=== PATIENT | male | born 1935 | race Caucasian/White ===

== ENCOUNTER 2018-05-25 10:19 | Observation (INO) ==
[2018-05-25] MEDS ORDERED: Sod Chloride 0.9% Inj 1,000 ML IV.SIG ONE ×2 (11:15→13:50)
--- NOTE | 2018-05-25 11:21 | ED ---
HPI General Chief complaint: Dizziness Stated complaint: Dizziness Time Seen by Provider: 05/25/18 11:06 Source: patient, family, RN notes reviewed and old records reviewed Mode of arrival: ambulatory History of Present Illness HPI narrative: 83yM presenting with dizziness. The patient states that he woke up this morning around 7 AM with severe "dizziness like the room is spinning counterclockwise around me", intermittent, exacerbated by any head movement, associated with nausea. He has a history of A fib on coumadin and a traumatic SDH in 2012; he denies any recent head injuries, fever or chills, confusion, extremity numbness/ tingling/ weakness. Family history non-contributory. Related Data Home Medications Medication Instructions Recorded Confirmed atorvastatin 20 mg PO DAILY 05/25/18 05/25/18 cholecalciferol (vitamin D3) 2,000 unit PO DAILY 05/25/18 05/25/18 [Vitamin D3] donepezil 10 mg PO HS 05/25/18 05/25/18 glimepiride 2 mg PO QAM 05/25/18 05/25/18 sitagliptin [Januvia] 100 mg PO DAILY 05/25/18 05/25/18 tamsulosin 0.4 mg PO DAILY 05/25/18 05/25/18 warfarin 3 mg PO Q OTHER DAY 05/25/18 05/25/18 warfarin 3 mg PO Q OTHER DAY 05/25/18 05/25/18 Allergies Allergy/AdvReac Type Severity Reaction Status Date / Time bee venom protein (honey bee) Allergy Severe Confusion Verified 05/25/18 11:02 penicillin G Allergy Intermediate Hives Verified 05/25/18 11:02 Review of Systems ROS: all other systems reviewed are negative Constitutional Denies fever(s) Eyes Reports requires corrective lenses ENT Denies nasal congestion Cardiovascular Denies chest pain Respiratory Denies cough Gastrointestinal Denies nausea Genitourinary Denies dysuria and Reports urinary frequency Musculoskeletal Denies back pain Neurologic Denies confusion and Reports dizziness Psychiatric Denies confusion PMFSH History History Provided By: Patient Medical History Medical History A-fib (Acute) Diabetes (Acute) H/O traumatic subdural hematoma (Acute) Surgical History Surgical History History of stevo hole surgery (Acute) Social History Social History Substance History: No History of Abuse Smoking Status: Former smoker How Often Do You Have a Drink Containing Alcohol: 2 to 3 times a week Recent Travel in [facility] within the Last 8 Weeks: No Recent Out of Country Travel within the Last 8 Weeks: No Exam Const Other: Appears uncomfortable, leaning forward on bed, appears unsteady HENRI Head: normocephalic and atraumatic Face and sinus: normal facial exam Eyes General: appearance normal, both eyes and all related structures Other: Pupils 3 mm and reactive bilaterally Subtle right-sided horizontal nystagmus noted during extraocular testing Chest Chest: normal inspection of the chest Resp Effort & Inspection: normal respiratory effort Auscultation: no rhonchi and no wheezes Cardio Rate: regular rate Rhythm: abnormal rhythm GI Inspection: non-distended Palpation: soft and nontender Skin General: no rashes or lesions noted Neuro General: alert, awake and oriented x3 Other: Ambulates with unsteady gait, (+) truncal ataxia while sitting No facial droop or slurred speech, no aphasia Motor strength 5/5 and sensation intact to all extremities No pronator drift Psych Affect: normal affect Course Initial Documented Vital Signs Temperature 97.2 F L 05/25/18 10:43 Pulse Rate 67 05/25/18 10:43 Respiratory Rate 16 05/25/18 10:43 Blood Pressure 163/83 H 05/25/18 10:43 Pulse Oximetry 97 05/25/18 10:43 Last Documented Vital Signs Temperature 97.2 F L 05/25/18 10:43 Pulse Rate 57 L 05/25/18 13:02 Respiratory Rate 19 05/25/18 13:02 Blood Pressure 195/84 H 05/25/18 13:02 Pulse Oximetry 97 05/25/18 13:02 NIH Stroke Scale NIHSS Time Completed NIHSS Time Completed: 11:15 NIH Stroke Scale Level of Consciousness: 0-Alert Orientation Questions: 0-Answers both correct Responds to Commands: 0-Both tasks correct Gaze Eye Movement: 0-Horizontal movement WNL Visual Ajra: 0-No visual field defect Facial Movement: 0-Normal Motor Functions Arm LEFT: 0-No drift Motor Functions Arm RIGHT: 0-No drift Motor Functions Leg LEFT: 0-No drift Motor Functions Leg RIGHT: 0-No drift Limb Ataxia: 0-No ataxia (No limb ataxia, but (+) truncal ataxia) Sensory Loss: 0-No sensory loss Best Language: 0-Normal Articulation: 0-Normal Extinction or Inattention Sensory: 0-Absent Total: 0 Medical Decision Making MDM Narrative Medical decision making narrative: Assessment: 83yM presenting with dizziness Plan: EKG and monitor FSBG Labs IV fluids, antiemetics CXR CT head, CTA head/ neck Addendum: Patient reports improvement in dizziness but continues to have ataxic gait. The patient's CT scans showed only minor carotid stenosis (~10%), no other significant abnormalities. He has a lipase of 2,000 of uncertain etiology or significance. This patient will need further workup for ataxia, including MRI and cardiac monitoring. I explained these results to the patient, who understands and agrees. Case discussed with Dr. Marsh of [facility]. Medical Screen Exam Complete: Yes Emergency Medical Condition: Yes Differential Diagnosis Differential Diagnosis: Differential diagnosis includes, but is not limited to: ICH, CVA, mass, arrhythmia, electrolyte abnormality, anemia, dehydration, UTI Lab Data Lab results reviewed: Yes I reviewed the patient's lab results. Result diagrams: 05/25/18 12:35 05/25/18 12:35 Lab Results 05/25/18 05/25/18 05/25/18 Range/Units 12:35 12:35 12:35 WBC 7.8 (4.0-11.0) th/mm3 RBC 5.06 (4.50-5.90) mil/mm3 Hgb 15.6 (13.0-17.0) gm/dL Hct 46.6 (39.0-51.0) % MCV 92.2 (80.0-100.0) fL MCH 30.8 (27.0-34.0) pg MCHC 33.4 (32.0-36.0) % RDW 14.1 (11.6-17.2) % Plt Count 111 L (150-450) th/mm3 MPV 9.4 (7.0-11.0) fL Neut % (Auto) 89.1 H (16.0-70.0) % Lymph % (Auto) 5.4 L (9.0-44.0) % Scott % (Auto) 4.6 (0.0-8.0) % Eos % (Auto) 0.6 (0.0-4.0) % Baso % (Auto) 0.3 (0.0-2.0) % Neut # (Auto) 7.0 (1.8-7.7) th/mm3 Lymph # (Auto) 0.4 L (1.0-4.8) th/mm3 Scott # (Auto) 0.4 (0.0-0.9) th/mm3 Eos # (Auto) 0.0 (0.0-0.4) th/mm3 Baso # (Auto) 0.0 (0.0-0.2) th/mm3 WBC Differential . Differential Comment Auto diff final PT 20.1 H (9.8-11.6) sec INR 2.0 Ratio Sodium 143 (136-145) meq/L Potassium 4.8 (3.5-5.1) meq/L Chloride 108 H (98-107) meq/L Carbon Dioxide 27.8 (21.0-32.0) meq/L Anion Gap 7 (5-15) meq/L BUN 19 H (7-18) mg/dL Creatinine 1.37 H (0.60-1.30) mg/dL Estimated GFR 50 L (>89) mL/min Random Glucose 168 H (74-106) mg/dL Calcium 8.6 (8.5-10.1) mg/dL Phosphorus 1.9 L (2.5-4.9) mg/dL Magnesium 2.2 (1.5-2.5) mg/dL Total Bilirubin 0.9 (0.2-1.0) mg/dL AST 31 (15-37) U/L ALT 63 (12-78) U/L Alkaline Phosphatase 120 H (45-117) U/L Troponin I Less than 0.02 L (0.02-0.05) ng/mL Total Protein 7.1 (6.4-8.2) g/dL Albumin 3.8 (3.4-5.0) g/dL Lipase (73-393) U/L Urine Color (Yellw/Straw) Urine Clarity (Clear) Urine pH (5.0-8.5) Ur Specific [place] (1.002-1.035) Urine Protein (Neg-Trace) mg/dL Urine Glucose (UA) (Negative) mg/dL Urine Ketones (Negative) mg/dL Urine Occult Blood (Negative) Urine Nitrate (Negative) Urine Bilirubin (Negative) Urine Urobilinogen (Less than 2) mg/dL Ur Leukocyte Esterase (Negative) Urine RBC (0-3) /hpf Urine WBC (0-5) /hpf Micro UA Comment Ur Microscopic Review Urine Culture Comments Blood Type Antibody Screen 05/25/18 05/25/18 05/25/18 Range/Units 12:35 12:35 12:35 WBC (4.0-11.0) th/mm3 RBC (4.50-5.90) mil/mm3 Hgb (13.0-17.0) gm/dL Hct (39.0-51.0) % MCV (80.0-100.0) fL MCH (27.0-34.0) pg MCHC (32.0-36.0) % RDW (11.6-17.2) % Plt Count (150-450) th/mm3 MPV (7.0-11.0) fL Neut % (Auto) (16.0-70.0) % Lymph % (Auto) (9.0-44.0) % Scott % (Auto) (0.0-8.0) % Eos % (Auto) (0.0-4.0) % Baso % (Auto) (0.0-2.0) % Neut # (Auto) (1.8-7.7) th/mm3 Lymph # (Auto) (1.0-4.8) th/mm3 Scott # (Auto) (0.0-0.9) th/mm3 Eos # (Auto) (0.0-0.4) th/mm3 Baso # (Auto) (0.0-0.2) th/mm3 WBC Differential Differential Comment PT (9.8-11.6) sec INR Ratio Sodium (136-145) meq/L Potassium (3.5-5.1) meq/L Chloride (98-107) meq/L Carbon Dioxide (21.0-32.0) meq/L Anion Gap (5-15) meq/L BUN (7-18) mg/dL Creatinine (0.60-1.30) mg/dL Estimated GFR (>89) mL/min Random Glucose (74-106) mg/dL Calcium (8.5-10.1) mg/dL Phosphorus (2.5-4.9) mg/dL Magnesium (1.5-2.5) mg/dL Total Bilirubin (0.2-1.0) mg/dL AST (15-37) U/L ALT (12-78) U/L Alkaline Phosphatase (45-117) U/L Troponin I (0.02-0.05) ng/mL Total Protein (6.4-8.2) g/dL Albumin (3.4-5.0) g/dL Lipase 2109 H (73-393) U/L Urine Color Yellow (Yellw/Straw) Urine Clarity Clear (Clear) Urine pH 6.0 (5.0-8.5) Ur Specific [place] 1.012 (1.002-1.035) Urine Protein Negative (Neg-Trace) mg/dL Urine Glucose (UA) 500 or greater (Negative) mg/dL Urine Ketones Negative (Negative) mg/dL Urine Occult Blood Negative (Negative) Urine Nitrate Negative (Negative) Urine Bilirubin Negative (Negative) Urine Urobilinogen Less than 2 (Less than 2) mg/dL Ur Leukocyte Esterase Negative (Negative) Urine RBC 1 (0-3) /hpf Urine WBC 1 (0-5) /hpf Micro UA Comment Culture not ind Ur Microscopic Review Not Reportable Urine Culture Comments Culture not ind Blood Type A Positive Antibody Screen Negative Imaging Data Radiologist's impression: Chest X-Ray 05/25/18 11:15 CONCLUSION: No acute intrathoracic disease. Stable examination. Head CT 05/25/18 11:15 CONCLUSION: Slight chronic small vessel ischemic and atrophic changes. Head CTA 05/25/18 11:18 CONCLUSION: No acute [place] vascular findings. Neck CTA 05/25/18 11:18 CONCLUSION: 1. Right minimal calcified plaque in the origin of the internal carotid arteries with resultant less than 10% stenosis. Otherwise, no flow-limiting carotid artery stenosis. 2. Patent bilateral vertebral arteries. Discharge Plan Physicians Team ED Provider: hTi Valentin Primary Care Provider: Skip Calderon Rxs /Orders / Referrals /Forms Prescriptions: No Action sitagliptin [Januvia] 100 mg Tablet 100 mg PO DAILY RF: 0 atorvastatin 20 mg Tablet 20 mg PO DAILY RF: 0 donepezil 10 mg Tablet 10 mg PO HS RF: 0 glimepiride 2 mg Tablet 2 mg PO QAM RF: 0 warfarin 3 mg Tablet 3 mg PO Q OTHER DAY RF: 0 warfarin 3 mg Tablet 3 mg PO Q OTHER DAY RF: 0 tamsulosin 0.4 mg Capsule,Extended Release 24hr 0.4 mg PO DAILY RF: 0 cholecalciferol (vitamin D3) [Vitamin D3] 2,000 unit Tablet 2,000 unit PO DAILY RF: 0 Discharge Interventions Interventions: Vital Signs Last Done: 05/25/18 13:02 Status ED Status: With Doctor
--- NOTE | 2018-05-25 11:50 | XR ---
EXAM DATE: 05/25/2018 11:32 AM EDT AGE/SEX: 83 years / Male INDICATIONS: Palpitations CLINICAL DATA: This is the patient's initial encounter. Patient reports that signs and symptoms have been present for 1 day and indicates a pain score of 0/10. MEDICAL/SURGICAL HISTORY: . Hypertension. AFIB None. COMPARISON: [facility] [place]ING[place], 07/07/2016. . FINDINGS: A single AP view of the chest demonstrates the lungs to be symmetrically aerated without evidence of mass, infiltrate or effusion. The heart size is enlarged but stable.. Osseous structures are intact . No significant changes compared to the prior study. CONCLUSION: No acute intrathoracic disease. Stable examination. Electronically signed by: Shoaib Maldonado MD 05/25/2018 11:48 AM EDT
[2018-05-25 13:14] LABS: Baso % (Auto) 0.3 % (0.0-2.0); Eos % (Auto) 0.6 % (0.0-4.0); Hematocrit 46.6 % (39.0-51.0); Hemoglobin 15.6 gm/dL (13.0-17.0); Lymph # (Auto) 0.4 th/mm3 (1.0-4.8); Lymph % (Auto) 5.4 % (9.0-44.0); Mean Corpuscular HGB Conc 33.4 % (32.0-36.0); Mean Corpuscular Hemoglobin 30.8 pg (27.0-34.0); Mean Corpuscular Volume 92.2 fL (80.0-100.0); Mean Platelet Volume 9.4 fL (7.0-11.0); Mono # (Auto) 0.4 th/mm3 (0.0-0.9); Mono % (Auto) 4.6 % (0.0-8.0); Neut % (Auto) 89.1 % (16.0-70.0); Platelet Count 111 th/mm3 (150-450); Red Blood Count 5.06 mil/mm3 (4.50-5.90); Red Cell Distribution Width 14.1 % (11.6-17.2); White Blood Count 7.8 th/mm3 (4.0-11.0)
[2018-05-25 13:24] LABS: Prothrombin Time 20.1 sec (9.8-11.6)
[2018-05-25 13:38] LABS: Alanine Aminotransferase 63 U/L (12-78); Albumin 3.8 g/dL (3.4-5.0); Anion Gap 7 meq/L (5-15); Aspartate Aminotransferase 31 U/L (15-37); Blood Urea Nitrogen 19 mg/dL (7-18); Calcium 8.6 mg/dL (8.5-10.1); Carbon Dioxide 27.8 meq/L (21.0-32.0); Chloride 108 meq/L (98-107); Glomerular Filtration Rate 50 mL/min (>89); Glucose,Random 168 mg/dL (74-106); Magnesium 2.2 mg/dL (1.5-2.5); Phosphorus 1.9 mg/dL (2.5-4.9); Potassium 4.8 meq/L (3.5-5.1); Sodium 143 meq/L (136-145)
[2018-05-25 13:42] LABS: Alkaline Phosphatase 120 U/L (45-117); Total Protein 7.1 g/dL (6.4-8.2)
[2018-05-25] MEDS ORDERED: Sodium Phosphate Inj 15 MMOL in Sodium Chlor 0.9% Inj 100 ML IV.SIG ONE (13:48)
[2018-05-25 13:51] LABS: Bilirubin,Urine Negative (Negative); Clarity,Urine Clear (Clear); Color,Urine Yellow (Yellw/Straw); Glucose,Urine (UA) 500 or Greater mg/dL (Negative); Leukocyte Esterase,Urine Negative (Negative); Nitrite,Urine Negative (Negative); Specific Gravity,Urine 1.012 (1.002-1.035)
--- NOTE | 2018-05-25 14:48 | CT ---
EXAM DATE: 05/25/2018 2:34 PM EDT AGE/SEX: 83 years / Male INDICATIONS: Dizziness and nausea since this morning. CLINICAL DATA: This is the patient's initial encounter. Patient reports that signs and symptoms have been present for 1 day and indicates a pain score of 0/10. MEDICAL/SURGICAL HISTORY: None. None. RADIATION DOSE: 37.77 CTDI (mGy) COMPARISON: [facility], CTA HEAD W CONTRAST W 3D, 05/25/2018. . TECHNIQUE: CT of the head without contrast. Using automated exposure control and adjustment of the mA and/or kV according to patient size, radiation dose was kept as low as reasonably achievable to ob tain optimal diagnostic quality images. DICOM format image data is available electronically for revi ew and comparison. FINDINGS: There is no evidence for intracranial hemorrhage, mass effect, mass lesions, or edema. The visualized bony structures appear intact. Slight degree of brain atrophy is seen. Slight periventri cular white matter changes are seen nonspecific mostly consistent with chronic small vessel ischemic changes. There are no signs of acute infarction for technique. CONCLUSION: Slight chronic small vessel ischemic and atrophic changes. Electronically signed by: Saravanan Mendieta MD 05/25/2018 2:47 PM EDT
--- NOTE | 2018-05-25 15:15 | CT ---
EXAM DATE: 05/25/2018 3:02 PM EDT AGE/SEX: 83 years / Male INDICATIONS: Dizziness and nausea since this morning. CLINICAL DATA: This is the patient's initial encounter. Patient reports that signs and symptoms have been present for 1 day and indicates a pain score of 0/10. MEDICAL/SURGICAL HISTORY: None. None. RADIATION DOSE: 28.77 CTDI (mGy) ; Combined studies COMPARISON: [facility], MR CERVICAL SPINE W/O CONTRAST, 05/10/2016. . TECHNIQUE: Volumetric scanning was performed using a multirow detector CT scanner during bolus infus ion of 73 ml Omnipaque 350 (iohexol) nonionic water-soluble contrast as a cumulative dose for multip le exams. The data was postprocessed with a variety of visualization algorithms including full-volu me maximum intensity projection, multiplanar sliding thin-slab reformation, curved-planar reformation , and surface-rendering techniques. Using automated exposure control and adjustment of the mA and/or kV according to patient size, radiation dose was kept as low as reasonably achievable to obtain opti mal diagnostic quality images. DICOM format image data is available electronically for review and co mparison. Percent stenosis is calculated using the diameter of the stenotic region over the diameter of the nor mal distal internal carotid artery. FINDINGS: Aortic Arch: There is a three-vessel origin of the great vessels from the aorta. No evidence of ost ial narrowing Right Carotid: The common carotid artery is intact. The carotid bulb has a normal configuration wit hout ulceration or narrowing. Tandem eccentric calcified plaque in the origin of the internal carotid artery resulting in less than 10% stenosis. Internal carotid arteries otherwise patent to the skull base. The external carotid artery is intact. Left Carotid: The common carotid artery is intact. The carotid bulb has a normal configuration with out ulceration or narrowing. Tandem eccentric calcified plaque in the origin of the internal carotid artery resulting in less than 10% stenosis. Internal carotid arteries otherwise patent to the skull base. The external carotid artery is intact. Vertebrals: The vertebral arteries have a symmetric diameter. No stenotic lesions are seen. General Findings: Lung apices are clear. Thyroid is unremarkable by CT. No significant adenopathy. CONCLUSION: 1. Right minimal calcified plaque in the origin of the internal carotid arteries with resultant less than 10% stenosis. Otherwise, no flow-limiting carotid artery stenosis. 2. Patent bilateral vertebral arteries. Electronically signed by: Yosvany Gonzalez MD 05/25/2018 3:14 PM EDT
--- NOTE | 2018-05-25 15:41 | CT ---
EXAM DATE: 05/25/2018 3:15 PM EDT AGE/SEX: 83 years / Male INDICATIONS: Dizziness and nausea since this morning. CLINICAL DATA: This is the patient's initial encounter. Patient reports that signs and symptoms have been present for 1 day and indicates a pain score of 0/10. MEDICAL/SURGICAL HISTORY: None. None. RADIATION DOSE: 28.77 CTDI (mGy) ; Combined studies COMPARISON: [facility] – [place], CT HEAD W/O CONTRAST, 05/25/2018. . TECHNIQUE: Volumetric scanning was performed using a multi-row detector CT scanner during bolus infu sanjiv of 73 ml Omnipaque 350 (iohexol) nonionic water-soluble contrast as a cumulative dose for multi ple exams. The data was post processed with a variety of visualization algorithms including full vo lume maximum intensity projection, multi-planar sliding thin slab reformation, curved planar reformat ion, and surface rendering techniques. Using automated exposure control and adjustment of the mA and /or kV according to patient size, radiation dose was kept as low as reasonably achievable to obtain o ptimal diagnostic quality images. DICOM format image data is available electronically for review and comparison. FINDINGS: There is excellent visualization of the major intracranial arteries out to the second-order branch ve ssels. There is no evidence for aneurysm, vessel truncation or stenosis, and no evidence for vascula r malformation. Incidental origin of the left posterior cerebral artery. CONCLUSION: No acute [place] vascular findings. Electronically signed by: Jhonatan Guerrero MD 05/25/2018 3:40 PM EDT
[2018-05-25] MEDS ORDERED: Acetaminophen 325 MG Tablet PO PRN (17:48)
[2018-05-25] MEDS ORDERED: Bisacodyl 10 MG Supp RECTAL PRN (17:48)
[2018-05-25] MEDS ORDERED: Dextrose 50% in Water 50 ML Vial IV.PUSH PRN (17:51)
[2018-05-25] MEDS ORDERED: Warfarin Consult Pharmacy OTHER PRN (17:56)
--- NOTE | 2018-05-25 18:23 | P.HP ---
History of Present Illness Service: Hospitalist Primary Care Physician: Skip Calderon MD Chief Complaint: Dizziness History of Present Illness: This is a 83-year-old male with a past medical history significant for diabetes , atrial fibrillation on Coumadin, BPH, hypertension, dyslipidemia, and history of left frontoparietal subdural hematoma status post left frontoparietal craniotomy and resection of subdural membrane 2012 and hx of kidney stones s/p ESWL and stent placement several weeks ago who presents to [facility] ED with complaints of dizziness. Patient states he woke up this morning around 7 AM and immediately experienced severe dizziness with a sensation of the room spinning around with associated nausea. Patient denies any associated confusion , slurred speech, memory difficulties, word finding difficulties, numbness/ tingling or weakness. He denies any recent change in medication. He denies any recent head injuries, recent illness or sinus problems. He denies any chest pain or shortness of breath. He denies any vomiting or abdominal pain. He denies any hematuria or dysuria. He denies any diarrhea or constipation. Patient states that the dizziness is much improved however if he leans his head backwards he is able to make the room starts spinning again. Incidentally, patient was found to have elevated lipase level of 2109. Review of Systems All other systems reviewed negative except as stated in [facility] - History History Provided By: Patient - Medical History Medical History: Medical History (Last Updated 05/25/18 @ 18:00 by Tracey Figueroa) BPH (benign prostatic hyperplasia) Dyslipidemia Kidney stones A-fib Diabetes H/O traumatic subdural hematoma - Surgical History Surgical History: Surgical History (Last Reviewed 05/25/18 @ 17:59 by Tracey Figueroa) History of stevo hole surgery - Family History Family History: Family History (Last Updated 05/25/18 @ 18:00 by Tracey Figueroa) Other Family history non-contributory - Tobacco History Smoking Status: Former smoker - Alcohol History How Often Do You Have a Drink Containing Alcohol: 2 to 3 times a week (Patient states he drinks 1 beer a night) - Substance Use History Substance History: No History of Abuse - Travel History Recent Travel in the [facility] [[email or web address] Within the Last 8 Weeks: No Recent Travel Out of the Country Within the Last 8 Weeks: No - Immunization History Tetanus Immunization: Unsure Hx Influenza Vaccine This Season: No Medications and Allergies Active Medications: Active Medications Acetaminophen (Tylenol) 650 mg PO Q4H PRN PRN Reason: Temp > 100.4 Al Hydroxide/Mg Hydroxide (Milk Of Magnesia Liq) 30 ml PO Q12H PRN PRN Reason: Mild Constipation Bisacodyl (Dulcolax Supp) 10 mg RECTAL DAILY PRN PRN Reason: SEVERE CONSITIPATION Dextrose (D50w Vial) 50 ml IV.PUSH UNSCH PRN PRN Reason: PER HYPOGLYCEMIA PROTOCOL Glucagon (Glucagon Inj) 1 mg OTHER PRN PRN PRN Reason: for Hypoglycemia Protocol Sodium Phosphate 15 mmol/ (Sodium Chloride) 105 mls @ 25 mls/hr IV.SIG ONCE ONE Stop: 05/25/18 17:59 Last Admin: 05/25/18 14:42 Dose: 25 mls/hr Insulin Aspart (Novolog Insulin Correctional Sugar Inj) 0 unit SQ ACHS MATTHEW; Protocol Lactulose (Lactulose Liq) 30 ml PO DAILY PRN PRN Reason: SEVERE CONSITIPATION Ondansetron HCl (Zofran Inj) 4 mg IV.PUSH Q6H PRN PRN Reason: NAUSEA OR VOMITING Senna/Docusate Sodium (Tete-Colace) 1 tab PO BID MATTHEW Sennosides (Senokot) 17.2 mg PO Q12H PRN PRN Reason: Moderate Constipation Sodium Chloride (Ns Flush) 2 ml IV.FLUSH PRN PRN PRN Reason: FLUSH AFTER USING IV ACCESS Allergies Allergy/AdvReac Type Severity Reaction Status Date / Time bee venom protein (honey bee) Allergy Severe Confusion Verified 05/25/18 11:02 penicillin G Allergy Intermediate Hives Verified 05/25/18 11:02 Home Medications Medication Instructions Recorded Confirmed Type atorvastatin 20 mg PO DAILY 05/25/18 05/25/18 History cholecalciferol (vitamin D3) 2,000 unit PO DAILY 05/25/18 05/25/18 History [Vitamin D3] donepezil 10 mg PO HS 05/25/18 05/25/18 History glimepiride 2 mg PO QAM 05/25/18 05/25/18 History sitagliptin [Januvia] 100 mg PO DAILY 05/25/18 05/25/18 History tamsulosin 0.4 mg PO DAILY 05/25/18 05/25/18 History warfarin 3 mg PO Q OTHER DAY 05/25/18 05/25/18 History warfarin 3 mg PO Q OTHER DAY 05/25/18 05/25/18 History Exam Vital signs: Vital Signs 05/25/18 10:43 05/25/18 13:02 05/25/18 16:30 Temperature 97.2 F L Pulse Rate 67 57 L 97 H Respiratory Rate 16 19 18 Blood Pressure 163/83 H 195/84 H 142/90 H Pulse Oximetry 97 97 97 Intake & Output 05/24/18 05/25/18 05/25/18 18:59 06:59 18:59 Intake Total 1999 Balance 1999 Weight 90 kg Intake: IV 1999 NS Inj 1,000 ML @ Wide Open IV. 1999 SIG BOLUS ONE Rx#:[id number] Narrative: GENERAL: Well-developed well-nourished elderly male who appears younger than stated age. Awake and alert. Not in any acute distress. is at the bedside. SKIN: Warm and dry. No generalized rash. HEAD: Atraumatic. Normocephalic. EYES: Pupils equal and round. No scleral icterus. No injection or drainage. ENT: No nasal bleeding or discharge. Mucous membranes pink and moist. NECK: Trachea midline. CARDIOVASCULAR: Irregular. No murmur appreciated. RESPIRATORY: No accessory muscle use. Clear to auscultation. Breath sounds equal bilaterally. GASTROINTESTINAL: Abdomen soft, non-tender, nondistended. Hepatic and splenic margins not palpable. MUSCULOSKELETAL: Extremities without clubbing, cyanosis, or edema. No obvious deformities. NEUROLOGICAL: Awake and alert. No obvious cranial nerve deficits. Motor grossly within normal limits. Able to move all extremities spontaneously. Normal speech. PSYCHIATRIC: Appropriate mood and affect; insight and judgment normal. Results - Labs CBC & Chem 7: 05/25/18 12:35 05/25/18 12:35 Labs: Laboratory Results - last 24 hr 05/25/18 05/25/18 05/25/18 12:35 12:35 12:35 WBC 7.8 RBC 5.06 Hgb 15.6 Hct 46.6 MCV 92.2 MCH 30.8 MCHC 33.4 RDW 14.1 Plt Count 111 L MPV 9.4 Neut % (Auto) 89.1 H Lymph % (Auto) 5.4 L [place] % (Auto) 4.6 Eos % (Auto) 0.6 Baso % (Auto) 0.3 Neut # (Auto) 7.0 Lymph # (Auto) 0.4 L [place] # (Auto) 0.4 Eos # (Auto) 0.0 Baso # (Auto) 0.0 WBC Differential . Differential Comment Auto diff final PT 20.1 H INR 2.0 Sodium 143 Potassium 4.8 Chloride 108 H Carbon Dioxide 27.8 Anion Gap 7 BUN 19 H Creatinine 1.37 H Estimated GFR 50 L Random Glucose 168 H Calcium 8.6 Phosphorus 1.9 L Magnesium 2.2 Total Bilirubin 0.9 AST 31 ALT 63 Alkaline Phosphatase 120 H Troponin I Less than 0.02 L Total Protein 7.1 Albumin 3.8 Lipase Urine Color Urine Clarity Urine pH Ur Specific [place] Urine Protein Urine Glucose (UA) Urine Ketones Urine Occult Blood Urine Nitrate Urine Bilirubin Urine Urobilinogen Ur Leukocyte Esterase Urine RBC Urine WBC Micro UA Comment Ur Microscopic Review Urine Culture Comments Blood Type Antibody Screen 05/25/18 05/25/18 05/25/18 12:35 12:35 12:35 WBC RBC Hgb Hct MCV MCH MCHC RDW Plt Count MPV Neut % (Auto) Lymph % (Auto) [place] % (Auto) Eos % (Auto) Baso % (Auto) Neut # (Auto) Lymph # (Auto) [place] # (Auto) Eos # (Auto) Baso # (Auto) WBC Differential Differential Comment PT INR Sodium Potassium Chloride Carbon Dioxide Anion Gap BUN Creatinine Estimated GFR Random Glucose Calcium Phosphorus Magnesium Total Bilirubin AST ALT Alkaline Phosphatase Troponin I Total Protein Albumin Lipase 2109 H Urine Color Yellow Urine Clarity Clear Urine pH 6.0 Ur Specific [place] 1.012 Urine Protein Negative Urine Glucose (UA) 500 or greater Urine Ketones Negative Urine Occult Blood Negative Urine Nitrate Negative Urine Bilirubin Negative Urine Urobilinogen Less than 2 Ur Leukocyte Esterase Negative Urine RBC 1 Urine WBC 1 Micro UA Comment Culture not ind Ur Microscopic Review Not Reportable Urine Culture Comments Culture not ind Blood Type A Positive Antibody Screen Negative - Imaging Impressions Chest X-Ray 05/25/18 11:15 CONCLUSION: No acute intrathoracic disease. Stable examination. Head CT 05/25/18 11:15 CONCLUSION: Slight chronic small vessel ischemic and atrophic changes. Head CTA 05/25/18 11:18 CONCLUSION: No acute [place] vascular findings. Neck CTA 05/25/18 11:18 CONCLUSION: 1. Right minimal calcified plaque in the origin of the internal carotid arteries with resultant less than 10% stenosis. Otherwise, no flow-limiting carotid artery stenosis. 2. Patent bilateral vertebral arteries. Caprini VTE Risk Assessment Caprini VTE Risk Assessment: Moderate/High Risk (score >= 2) Caprini Risk Assessment Model: Point Value = 1 Point Value = 2 Point Value = 3 Point Value = 5 Age 41-60 Minor surgery BMI > 25 kg/m2 Swollen legs Varicose veins or History of unexplained or recurrent spontaneous Oral contraceptives or hormone replacement Sepsis (< 1 month) Serious lung disease, including pneumonia (< 1 month) Abnormal pulmonary function Acute myocardial infarction Congestive heart failure (< 1 month) History of inflammatory bowel disease Medical patient at bed rest Age 61-74 Arthroscopic surgery Major open surgery (> 45 min) Laparoscopic surgery (> 45 min) Malignancy Confined to bed (> 72 hours) Immobilizing plaster cast Central venous access Age >= 75 History of VTE Family history of VTE Factor V Leiden Prothrombin [id number] Lupus anticoagulant Anticardiolipin antibodies Elevated serum homocysteine Heparin-induced thrombocytopenia Other congenital or acquired thrombophilia Stroke (< 1 month) Elective arthroplasty Hip, pelvis, or leg fracture Acute spinal cord injury (< 1 month) Prophylaxis Regimen: Total Risk Factor Score Risk Level Prophylaxis Regimen 0-1 Low Early ambulation 2 Moderate Order ONE of the following: *Sequential Compression Device (SCD) *Heparin 5000 units SQ BID 3-4 Higher Order ONE of the following medications: *Heparin 5000 units SQ TID *Enoxaparin/Lovenox 40 mg SQ daily (WT < 150 kg, CrCl > 30 mL/min) *Enoxaparin/Lovenox 30 mg SQ daily (WT < 150 kg, CrCl > 10-29 mL/min) *Enoxaparin/Lovenox 30 mg SQ BID (WT < 150 kg, CrCl > 30 mL/min) AND/OR *Sequential Compression Device (SCD) 5 or more Highest Order ONE of the following medications: *Heparin 5000 units SQ TID (Preferred with Epidurals) *Enoxaparin/Lovenox 40 mg SQ daily (WT < 150 kg, CrCl > 30 mL/min) *Enoxaparin/Lovenox 30 mg SQ daily (WT < 150 kg, CrCl > 10-29 mL/min) *Enoxaparin/Lovenox 30 mg SQ BID (WT < 150 kg, CrCl > 30 mL/min) AND *Sequential Compression Device (SCD) Assessment and Plan - Plan 83-year-old male with a past medical history significant for diabetes, atrial fibrillation on Coumadin, BPH, hypertension, dyslipidemia, and history of left frontoparietal subdural hematoma status post left frontoparietal craniotomy and resection of subdural membrane 2012 and hx of kidney stones s/p ESWL and stent placement several weeks ago who presents to [facility] ED with complaints of dizziness. Sudden onset of dizziness, likely BPPV Head CT negative for acute intracranial process Head CTA unremarkable Neck CTA with minimal right calcified plaque less than 10% stenosis -Obtain MRI of the head for further evaluation -Fall precautions -Scheduled meclizine 25mg po q8hr -PT eval/tx -Continuous cardiac monitoring -Obtain orthostatic BP measurement Elevated lipase level, uncertain etiology, possibly secondary to antidiabetic medications Patient without symptomatology LFTs within normal limits, alk phos minimally elevated at 120 -Obtain ultrasound of pancreas -Hold home dose of Januvia and glimepiride -trend lipase level MEGAN on possible CKD Cr 1.37/GFR 50 No recent lab for comparison 2012 baseline creatinine appears to be around 1.2, last cr in system was 1.55 in 2016 Patient given IV fluids in the ED -Avoid nephrotoxic agents -Monitor kidney function, repeat BMP in a.m. Atrial fibrillation, rate controlled On Coumadin, INR 2.0 -Continue home dose of Coumadin. Pharmacy to assist with dosing. Monitor INR. -Monitor heart rate Hypertension -Patient not on any antihypertensive medications -BP currently acceptable -Continue to monitor BP and adjust treatment accordingly Diabetes mellitus, type 2 -Hold home dose of glimepiride and Januvia -accuchecks and ISS Hypophosphatemia -P.o. repletion ordered BPH -Continue on home dose of Flomax Dementia, mild -Continue on home dose of Aricept DVT prophylaxis -Patient is on Coumadin Code Status: FULL Discussed Condition With: patient, , Dr. Marsh
--- NOTE | 2018-05-25 18:50 | US ---
EXAM DATE: 05/25/2018 6:43 PM EDT AGE/SEX: 83 years / Male INDICATIONS: Increased amylase and lipase. CLINICAL DATA: This is the patient's initial encounter. Patient reports that signs and symptoms have been present for 1 day and indicates a pain score of 0/10. MEDICAL/SURGICAL HISTORY: Diabetes. Atrial fibrillation. . Scott hole surgery. COMPARISON: [facility], CT ABDOMEN AND PELVIS W/ CONTRAST, 03/08/2018. . MEASUREMENTS: Liver:__ 18.6 cm. Common Duct:__ 4mm. Right Kidney:__ 10.5 x 5.4 x 6.1 cm. FINDINGS: Liver: Normal echotexture without focal lesion or ductal dilatation. Common Duct: No intraluminal mass or stone visualized. Gallbladder: Demonstrates no wall thickening or pericholecystic fluid. No stones visualized. Pancreas: Not well visualized. Other: The right kidney appears echogenic. Hydronephrosis is not seen. CONCLUSION: 1. The pancreas is obscured by bowel gas. 2. Echogenic right kidney which can be seen with medical renal disease. Electronically signed by: Jhonatan Berrios MD 05/25/2018 6:49 PM EDT
[2018-05-25] MEDS ORDERED: Gadobutrol PF 10 MMOL/10 ML Vial (for RAD) IV.SIG ONE (20:00)
--- NOTE | 2018-05-25 20:18 | MR ---
EXAM DATE: 05/25/2018 8:12 PM EDT AGE/SEX: 83 years / Male INDICATIONS: Dizziness. CLINICAL DATA: This is the patient's initial encounter. Patient reports that signs and symptoms have been present for 1 day and indicates a pain score of 0/10. MEDICAL/SURGICAL HISTORY: Diabetes. Renal calculi. Hypercholesterolemia. A-fib. Subdural he matoma. Craniotomy. COMPARISON: [facility], MRI BRAIN W/O CONTRAST, 06/26/2013. . TECHNIQUE: Multiplanar, multisequence examination of the brain was performed without and with 9 ml Ga davist (gadobutrol) contrast as a single exam dose. FINDINGS: Cerebrum: The ventricles are dilated. The left lateral ventricle is dilated somewhat more prominentl y than the right lateral ventricle. The cortical sulci are mildly widened. No evidence of midline sh ift, mass lesion, hemorrhage or acute infarction. No extraaxial fluid collections are seen. The pit uitary gland and suprasellar cistern are normal in configuration. White Matter: There are a few scattered focal areas of increased signal within the cerebral white ma tter. Posterior Fossa: The cerebellum and brainstem are intact. The 4th ventricle is midline. The cerebel lopontine angle is unremarkable. The cerebellar tonsils are normal in position. Diffusion Imaging: No focal areas of restricted diffusion are seen. No evidence of acute infarction . Extracranial: The visualized portions of the orbits and paranasal sinuses are unremarkable. The melita ent is status post left craniotomy. Post Contrast: No abnormal areas of parenchymal or dural enhancement. No evidence of blood-brain ba rrier breakdown. CONCLUSION: 1. No acute abnormality is seen. 2. Atrophy. 3. Minimal scattered focal areas of suspected small vessel ischemic demyelination. Electronically signed by: Jhonatan Berrios MD 05/25/2018 8:17 PM EDT
[2018-05-25] MEDS: Senna/Docusate Sodium 8.6/50 MG Tablet PO SCH (22:21)
[2018-05-25] MEDS: Insulin NovoLOG Aspart Correctional Sugar Inj SQ SCH (22:23)
[2018-05-25] MEDS: Potassium Phos/Sodium Phos 250 MG Tablet PO SCH (22:27)
[2018-05-26 07:05] LABS: Albumin 3.5 g/dL (3.4-5.0); Aspartate Aminotransferase 24 U/L (15-37); Blood Urea Nitrogen 16 mg/dL (7-18); Calcium 8.6 mg/dL (8.5-10.1); Chloride 110 meq/L (98-107); Glomerular Filtration Rate 59 mL/min (>89); Glucose,Random 65 mg/dL (74-106); Lipase 321 U/L (73-393); Potassium 3.3 meq/L (3.5-5.1); Sodium 146 meq/L (136-145)
[2018-05-26 07:17] LABS: Alanine Aminotransferase 52 U/L (12-78); Alkaline Phosphatase 111 U/L (45-117); Anion Gap 12 meq/L (5-15); Carbon Dioxide 23.8 meq/L (21.0-32.0); Total Protein 6.5 g/dL (6.4-8.2)
[2018-05-26 07:48] VITALS: BP 135/93; O2SAT 97
[2018-05-26] MEDS: Insulin NovoLOG Aspart Correctional Sugar Inj SQ SCH ×2 (08:39→13:37)
[2018-05-26] MEDS: Potassium Phos/Sodium Phos 250 MG Tablet PO SCH ×2 (08:47→13:39)
[2018-05-26] MEDS: Senna/Docusate Sodium 8.6/50 MG Tablet PO SCH (08:47)
[2018-05-26 11:04] VITALS: PULSE 70; RESP 14; TEMP 98
--- NOTE | 2018-05-26 14:18 | P.PNIM ---
Subjective Interval history: This is a 83-year-old male with a past medical history significant for diabetes , atrial fibrillation on Coumadin, BPH, hypertension, dyslipidemia, and history of left frontoparietal subdural hematoma status post left frontoparietal craniotomy and resection of subdural membrane 2012 and hx of kidney stones s/p ESWL and stent placement several weeks ago who presents to [facility] ED with complaints of dizziness. Patient states he woke up this morning around 7 AM and immediately experienced severe dizziness with a sensation of the room spinning around with associated nausea. Patient denies any associated confusion , slurred speech, memory difficulties, word finding difficulties, numbness/ tingling or weakness. He denies any recent change in medication. He denies any recent head injuries, recent illness or sinus problems. He denies any chest pain or shortness of breath. He denies any vomiting or abdominal pain. He denies any hematuria or dysuria. He denies any diarrhea or constipation. Patient states that the dizziness is much improved however if he leans his head backwards he is able to make the room starts spinning again. Incidentally, patient was found to have elevated lipase level of 2109. 8-31 less dizzy wants to go home dw rn and pt and case management follow up with pcp next week Physical Exam Vital signs: Vital Signs 05/25/18 16:30 05/25/18 20:00 05/26/18 00:55 Temperature 98.2 F Pulse Rate 97 H 90 84 Respiratory Rate 18 18 Blood Pressure 142/90 H 156/96 H Pulse Oximetry 97 97 05/26/18 03:22 05/26/18 04:00 05/26/18 07:45 Temperature 98 F 97.6 F Pulse Rate 75 71 75 Respiratory Rate 18 18 Blood Pressure 153/85 H 135/93 H Pulse Oximetry 96 97 05/26/18 10:56 Temperature 98.0 F Pulse Rate 70 Respiratory Rate 14 Blood Pressure Pulse Oximetry 97 Intake & Output 05/25/18 05/26/18 05/26/18 18:59 06:59 18:59 Intake Total 1999 105 / 105 Balance 1999 105 / 105 Weight 90 kg 90.718 kg Intake: IV 1999 105 / 105 NS Inj 1,000 ML @ Wide Open IV. 1999 SIG BOLUS ONE Rx#:[id number] Sodium Phosphate Inj 15 MMOL In 105 / 105 NS Inj 100 ML @ 25 mls/hr IV. SIG ONCE ONE Rx#:[id number] Other: Date of Last Bowel Movement 05/24/18 Weight On Admission 90.718 kg Narrative: GENERAL: Well-developed well-nourished elderly male who appears younger than stated age. Awake and alert. Not in any acute distress. is at the bedside. SKIN: Warm and dry. No generalized rash. HEAD: Atraumatic. Normocephalic. EYES: Pupils equal and round. No scleral icterus. No injection or drainage. ENT: No nasal bleeding or discharge. Mucous membranes pink and moist. NECK: Trachea midline. CARDIOVASCULAR: Irregular. No murmur appreciated. RESPIRATORY: No accessory muscle use. Clear to auscultation. Breath sounds equal bilaterally. GASTROINTESTINAL: Abdomen soft, non-tender, nondistended. Hepatic and splenic margins not palpable. MUSCULOSKELETAL: Extremities without clubbing, cyanosis, or edema. No obvious deformities. NEUROLOGICAL: Awake and alert. No obvious cranial nerve deficits. Motor grossly within normal limits. Able to move all extremities spontaneously. Normal speech. PSYCHIATRIC: Appropriate mood and affect; insight and judgment normal. Results - Labs CBC & Chem 7: 05/25/18 12:35 05/26/18 05:22 Laboratory Results - last 24 hr 05/25/18 05/26/18 05/26/18 21:43 05:22 05:22 Sodium 146 H Potassium 3.3 L D Chloride 110 H Carbon Dioxide 23.8 Anion Gap 12 BUN 16 Creatinine 1.19 Estimated GFR 59 L POC Glucose 110 Random Glucose 65 L D Calcium 8.6 Magnesium 2.2 Total Bilirubin 0.8 AST 24 ALT 52 Alkaline Phosphatase 111 Total Protein 6.5 D Albumin 3.5 Lipase 321 TSH 1.780 05/26/18 05/26/18 07:30 11:35 Sodium Potassium Chloride Carbon Dioxide Anion Gap BUN Creatinine Estimated GFR POC Glucose 88 142 H Random Glucose Calcium Magnesium Total Bilirubin AST ALT Alkaline Phosphatase Total Protein Albumin Lipase TSH - Imaging Impressions Head MRI 05/25/18 00:00 CONCLUSION: 1. No acute abnormality is seen. 2. Atrophy. 3. Minimal scattered focal areas of suspected small vessel ischemic demyelination. Pancreas Ultrasound 05/25/18 00:00 CONCLUSION: 1. The pancreas is obscured by bowel gas. 2. Echogenic right kidney which can be seen with medical renal disease. Head CT 05/25/18 11:15 CONCLUSION: Slight chronic small vessel ischemic and atrophic changes. Head CTA 05/25/18 11:18 CONCLUSION: No acute [place] vascular findings. Neck CTA 05/25/18 11:18 CONCLUSION: 1. Right minimal calcified plaque in the origin of the internal carotid arteries with resultant less than 10% stenosis. Otherwise, no flow-limiting carotid artery stenosis. 2. Patent bilateral vertebral arteries. - Procedures none Assessment and Plan - Plan 83-year-old male with a past medical history significant for diabetes, atrial fibrillation on Coumadin, BPH, hypertension, dyslipidemia, and history of left frontoparietal subdural hematoma status post left frontoparietal craniotomy and resection of subdural membrane 2012 and hx of kidney stones s/p ESWL and stent placement several weeks ago who presents to [facility] ED with complaints of dizziness. Sudden onset of dizziness, likely BPPV Head CT negative for acute intracranial process Head CTA unremarkable Neck CTA with minimal right calcified plaque less than 10% stenosis -Obtain MRI of the head for further evaluation -Fall precautions -Scheduled meclizine 25mg po q8hr -PT eval/tx -Continuous cardiac monitoring -Obtain orthostatic BP measurement ALL XRAYS ARE STABLE FEELS BETTER ON MECLIZINE DC TO HOME Elevated lipase level, uncertain etiology, possibly secondary to antidiabetic medications Patient without symptomatology LFTs within normal limits, alk phos minimally elevated at 120 -Obtain ultrasound of pancreas -Hold home dose of Januvia and glimepiride -trend lipase level MEGAN on possible CKD Cr 1.37/GFR 50 No recent lab for comparison 2012 baseline creatinine appears to be around 1.2, last cr in system was 1.55 in 2016 Patient given IV fluids in the ED -Avoid nephrotoxic agents -Monitor kidney function, repeat BMP in a.m. Atrial fibrillation, rate controlled On Coumadin, INR 2.0 -Continue home dose of Coumadin. Pharmacy to assist with dosing. Monitor INR. -Monitor heart rate Hypertension -Patient not on any antihypertensive medications -BP currently acceptable -Continue to monitor BP and adjust treatment accordingly Diabetes mellitus, type 2 -Hold home dose of glimepiride and Januvia -accuchecks and ISS Hypophosphatemia -P.o. repletion ordered BPH -Continue on home dose of Flomax Dementia, mild -Continue on home dose of Aricept DVT prophylaxis -Patient is on Coumadin LOOKS BETTER DC TO HOME TODAY Code Status: FULL CODE Discussed Condition With: RN AND PT AND CM Discharge Planning: DC TO HOME TODAY
--- NOTE | 2018-05-26 14:26 | P.DS ---
Date of admission: 05/25/18 16:25 Primary care physician: Skip Calderon MD Attending physician on discharge: Andreas De Los Santos Anticipated date of discharge: 05/26/18 Brief History from admission: This is a 83-year-old male with a past medical history significant for diabetes , atrial fibrillation on Coumadin, BPH, hypertension, dyslipidemia, and history of left frontoparietal subdural hematoma status post left frontoparietal craniotomy and resection of subdural membrane 2012 and hx of kidney stones s/p ESWL and stent placement several weeks ago who presents to [facility] ED with complaints of dizziness. Patient states he woke up this morning around 7 AM and immediately experienced severe dizziness with a sensation of the room spinning around with associated nausea. Patient denies any associated confusion , slurred speech, memory difficulties, word finding difficulties, numbness/ tingling or weakness. He denies any recent change in medication. He denies any recent head injuries, recent illness or sinus problems. He denies any chest pain or shortness of breath. He denies any vomiting or abdominal pain. He denies any hematuria or dysuria. He denies any diarrhea or constipation. Patient states that the dizziness is much improved however if he leans his head backwards he is able to make the room starts spinning again. Incidentally, patient was found to have elevated lipase level of 2109. Patient update on day of discharge: IMPROVED ON MECLIZINE DS: Diagnosis - Discharge Diagnosis (1) BPPV (benign paroxysmal positional vertigo) Status: Acute (2) Ataxia Status: Acute (3) Dizziness Status: Acute DS: Medications - Discharge Medications Prescriptions: meclizine 25 mg PO Q8HR #90 tab DS: Summary Hospital Course: This is a 83-year-old male with a past medical history significant for diabetes , atrial fibrillation on Coumadin, BPH, hypertension, dyslipidemia, and history of left frontoparietal subdural hematoma status post left frontoparietal craniotomy and resection of subdural membrane 2012 and hx of kidney stones s/p ESWL and stent placement several weeks ago who presents to [facility] ED with complaints of dizziness. Patient states he woke up this morning around 7 AM and immediately experienced severe dizziness with a sensation of the room spinning around with associated nausea. Patient denies any associated confusion , slurred speech, memory difficulties, word finding difficulties, numbness/ tingling or weakness. He denies any recent change in medication. He denies any recent head injuries, recent illness or sinus problems. He denies any chest pain or shortness of breath. He denies any vomiting or abdominal pain. He denies any hematuria or dysuria. He denies any diarrhea or constipation. Patient states that the dizziness is much improved however if he leans his head backwards he is able to make the room starts spinning again. Incidentally, patient was found to have elevated lipase level of 2109. 8-31 less dizzy wants to go home dw rn and pt and case management follow up with pcp next week - Time Spent with Patient Total time spent providing and/or coordinating discharge services: Less than 30 minutes - Quality: VTE Deep Vein Thrombosis/Pulmonary Embolism Present on Admission: No Exam Vital signs: Vital Signs 05/25/18 16:30 05/25/18 20:00 05/26/18 00:55 Temperature 98.2 F Pulse Rate 97 H 90 84 Respiratory Rate 18 18 Blood Pressure 142/90 H 156/96 H Pulse Oximetry 97 97 05/26/18 03:22 05/26/18 04:00 05/26/18 07:45 Temperature 98 F 97.6 F Pulse Rate 75 71 75 Respiratory Rate 18 18 Blood Pressure 153/85 H 135/93 H Pulse Oximetry 96 97 05/26/18 10:56 Temperature 98.0 F Pulse Rate 70 Respiratory Rate 14 Blood Pressure Pulse Oximetry 97 Intake & Output 05/25/18 05/26/18 05/26/18 18:59 06:59 18:59 Intake Total 1999 105 / 105 Balance 1999 105 / 105 Weight 90 kg 90.718 kg Intake: IV 1999 105 / 105 NS Inj 1,000 ML @ Wide Open IV. 1999 SIG BOLUS ONE Rx#:[id number] Sodium Phosphate Inj 15 MMOL In 105 / 105 NS Inj 100 ML @ 25 mls/hr IV. SIG ONCE ONE Rx#:[id number] Other: Date of Last Bowel Movement 05/24/18 Weight On Admission 90.718 kg Narrative: GENERAL: Well-developed well-nourished elderly male who appears younger than stated age. Awake and alert. Not in any acute distress. is at the bedside. SKIN: Warm and dry. No generalized rash. HEAD: Atraumatic. Normocephalic. EYES: Pupils equal and round. No scleral icterus. No injection or drainage. ENT: No nasal bleeding or discharge. Mucous membranes pink and moist. NECK: Trachea midline. CARDIOVASCULAR: Irregular. No murmur appreciated. RESPIRATORY: No accessory muscle use. Clear to auscultation. Breath sounds equal bilaterally. GASTROINTESTINAL: Abdomen soft, non-tender, nondistended. Hepatic and splenic margins not palpable. MUSCULOSKELETAL: Extremities without clubbing, cyanosis, or edema. No obvious deformities. NEUROLOGICAL: Awake and alert. No obvious cranial nerve deficits. Motor grossly within normal limits. Able to move all extremities spontaneously. Normal speech. PSYCHIATRIC: Appropriate mood and affect; insight and judgment normal. Results Procedures completed during hospitalization: none Completed studies during hospitalization: Laboratory Results WBC 7.8 th/mm3 (4.0-11.0) 05/25/18 12:35 RBC 5.06 mil/mm3 (4.50-5.90) 05/25/18 12:35 Hgb 15.6 gm/dL (13.0-17.0) 05/25/18 12:35 Hct 46.6 % (39.0-51.0) 05/25/18 12:35 MCV 92.2 fL (80.0-100.0) 05/25/18 12:35 MCH 30.8 pg (27.0-34.0) 05/25/18 12:35 MCHC 33.4 % (32.0-36.0) 05/25/18 12:35 RDW 14.1 % (11.6-17.2) 05/25/18 12:35 Plt Count 111 th/mm3 (150-450) L 05/25/18 12:35 MPV 9.4 fL (7.0-11.0) 05/25/18 12:35 Neut % (Auto) 89.1 % (16.0-70.0) H 05/25/18 12:35 Lymph % (Auto) 5.4 % (9.0-44.0) L 05/25/18 12:35 [place] % (Auto) 4.6 % (0.0-8.0) 05/25/18 12:35 Eos % (Auto) 0.6 % (0.0-4.0) 05/25/18 12:35 Baso % (Auto) 0.3 % (0.0-2.0) 05/25/18 12:35 Neut # (Auto) 7.0 th/mm3 (1.8-7.7) 05/25/18 12:35 Lymph # (Auto) 0.4 th/mm3 (1.0-4.8) L 05/25/18 12:35 [place] # (Auto) 0.4 th/mm3 (0.0-0.9) 05/25/18 12:35 Eos # (Auto) 0.0 th/mm3 (0.0-0.4) 05/25/18 12:35 Baso # (Auto) 0.0 th/mm3 (0.0-0.2) 05/25/18 12:35 WBC Differential . 05/25/18 12:35 Differential Comment Auto diff final 05/25/18 12:35 PT 20.1 sec (9.8-11.6) H 05/25/18 12:35 INR 2.0 Ratio 05/25/18 12:35 Sodium 146 meq/L (136-145) H 05/26/18 05:22 Potassium 3.3 meq/L (3.5-5.1) L D 05/26/18 05:22 Chloride 110 meq/L (98-107) H 05/26/18 05:22 Carbon Dioxide 23.8 meq/L (21.0-32.0) 05/26/18 05:22 Anion Gap 12 meq/L (5-15) 05/26/18 05:22 BUN 16 mg/dL (7-18) 05/26/18 05:22 Creatinine 1.19 mg/dL (0.60-1.30) 05/26/18 05:22 Estimated GFR 59 mL/min (>89) L 05/26/18 05:22 POC Glucose 142 mg/dl (68-110) H 05/26/18 11:35 Random Glucose 65 mg/dL (74-106) L D 05/26/18 05:22 Calcium 8.6 mg/dL (8.5-10.1) 05/26/18 05:22 Phosphorus 1.9 mg/dL (2.5-4.9) L 05/25/18 12:35 Magnesium 2.2 mg/dL (1.5-2.5) 05/26/18 05:22 Total Bilirubin 0.8 mg/dL (0.2-1.0) 05/26/18 05:22 AST 24 U/L (15-37) 05/26/18 05:22 ALT 52 U/L (12-78) 05/26/18 05:22 Alkaline Phosphatase 111 U/L (45-117) 05/26/18 05:22 Troponin I Less than 0.02 ng/mL (0.02-0.05) L 05/25/18 12:35 Total Protein 6.5 g/dL (6.4-8.2) D 05/26/18 05:22 Albumin 3.5 g/dL (3.4-5.0) 05/26/18 05:22 Lipase 321 U/L (73-393) 05/26/18 05:22 TSH 1.780 uIU/mL (0.358-3.740) 05/26/18 05:22 Urine Color Yellow (Yellw/Straw) 05/25/18 12:35 Urine Clarity Clear (Clear) 05/25/18 12:35 Urine pH 6.0 (5.0-8.5) 05/25/18 12:35 Ur Specific [place] 1.012 (1.002-1.035) 05/25/18 12:35 Urine Protein Negative mg/dL (Neg-Trace) 05/25/18 12:35 Urine Glucose (UA) 500 or greater mg/dL (Negative) 05/25/18 12:35 Urine Ketones Negative mg/dL (Negative) 05/25/18 12:35 Urine Occult Blood Negative (Negative) 05/25/18 12:35 Urine Nitrate Negative (Negative) 05/25/18 12:35 Urine Bilirubin Negative (Negative) 05/25/18 12:35 Urine Urobilinogen Less than 2 mg/dL (Less than 2) 05/25/18 12:35 Ur Leukocyte Esterase Negative (Negative) 05/25/18 12:35 Urine RBC 1 /hpf (0-3) 05/25/18 12:35 Urine WBC 1 /hpf (0-5) 05/25/18 12:35 Micro UA Comment Culture not ind 05/25/18 12:35 Ur Microscopic Review Not Reportable 05/25/18 12:35 Urine Culture Comments Culture not ind 05/25/18 12:35 Blood Type A Positive 05/25/18 12:35 Antibody Screen Negative 05/25/18 12:35 Impressions Head MRI 05/25/18 00:00 CONCLUSION: 1. No acute abnormality is seen. 2. Atrophy. 3. Minimal scattered focal areas of suspected small vessel ischemic demyelination. Pancreas Ultrasound 05/25/18 00:00 CONCLUSION: 1. The pancreas is obscured by bowel gas. 2. Echogenic right kidney which can be seen with medical renal disease. Chest X-Ray 05/25/18 11:15 CONCLUSION: No acute intrathoracic disease. Stable examination. Head CT 05/25/18 11:15 CONCLUSION: Slight chronic small vessel ischemic and atrophic changes. Head CTA 05/25/18 11:18 CONCLUSION: No acute [place] vascular findings. Neck CTA 05/25/18 11:18 CONCLUSION: 1. Right minimal calcified plaque in the origin of the internal carotid arteries with resultant less than 10% stenosis. Otherwise, no flow-limiting carotid artery stenosis. 2. Patent bilateral vertebral arteries. Labs on day of discharge: Labs from last 24 hours 05/26/18 05/26/18 05/26/18 11:35 07:30 05:22 Sodium Potassium Chloride Carbon Dioxide Anion Gap BUN Creatinine Estimated GFR POC Glucose 142 H 88 Random Glucose Hemoglobin A1c Calcium Magnesium 2.2 Total Bilirubin AST ALT Alkaline Phosphatase Total Protein Albumin Lipase TSH 05/26/18 05/26/18 05/25/18 05:22 05:22 21:43 Sodium 146 H Potassium 3.3 L D Chloride 110 H Carbon Dioxide 23.8 Anion Gap 12 BUN 16 Creatinine 1.19 Estimated GFR 59 L POC Glucose 110 Random Glucose 65 L D Hemoglobin A1c Pending Calcium 8.6 Magnesium Total Bilirubin 0.8 AST 24 ALT 52 Alkaline Phosphatase 111 Total Protein 6.5 D Albumin 3.5 Lipase 321 TSH 1.780 - Impressions ITS Impressions Head MRI 05/25/18 00:00 CONCLUSION: 1. No acute abnormality is seen. 2. Atrophy. 3. Minimal scattered focal areas of suspected small vessel ischemic demyelination. Pancreas Ultrasound 05/25/18 00:00 CONCLUSION: 1. The pancreas is obscured by bowel gas. 2. Echogenic right kidney which can be seen with medical renal disease. Chest X-Ray 05/25/18 11:15 CONCLUSION: No acute intrathoracic disease. Stable examination. Head CT 05/25/18 11:15 CONCLUSION: Slight chronic small vessel ischemic and atrophic changes. Head CTA 05/25/18 11:18 CONCLUSION: No acute [place] vascular findings. Neck CTA 05/25/18 11:18 CONCLUSION: 1. Right minimal calcified plaque in the origin of the internal carotid arteries with resultant less than 10% stenosis. Otherwise, no flow-limiting carotid artery stenosis. 2. Patent bilateral vertebral arteries. Discharge Plan - Discharge Disposition Patient Disposition: 01 Discharge Home - Discharge Condition Condition: Stable - Discharge Order Discharge Orders: Discharge Order (Routine); Ordered 05/26/18 Ordered By: Andreas De Los Santos - Discharge Details Anticipated Discharge Date: 05/26/18 Discharge Comment: DC TO HOME - Physicians Team Primary Care Provider: Skip Calderon Attending Provider: Andreas De Los Santos
[2018-05-26 18:10] LABS: Hemoglobin A1c 6.2 % (4.3-6.0)
== END 2018-05-26 15:43 | disposition home or self-care (01) ==
LOC: NEPD 10:19 → NEDA 10:19 → NEPGCP 20:27
PROVIDERS: ADMIT Hospitalist; ATTEND Hospitalist